=== PATIENT | female | born 1960 | race Two or more races ===

== ENCOUNTER 2021-11-20 11:11 | Emergency (ER) | payer OTHER ==
[~2021-11-20] VITALS: Ht 160 cm; Wt 63.3 kg
[2021-11-20 11:56] VITALS: BP 102/69
[2021-11-20 12:21] LABS: Urine Bacteria FEW /hpf (None Seen); Urine Blood Negative /uL (Negative); Urine Mucus FEW (None Seen); Urine Specific Gravity 1.013 (1.001-1.035); Urine WBC 1 /hpf (0 - 5)
[2021-11-20] MEDS ORDERED: ASPirin 81 mg TAB PO ONE (12:30)
== END 2021-11-20 12:36 | disposition left against medical advice (07) ==
LOC: ER 11:37
DX: R07.89 Other chest pain (principal)
CPT/HCPCS: 81001; 93005